=== PATIENT | male | born 1965 | race Caucasian/White ===

== ENCOUNTER 2016-07-05 18:35 | Emergency (ER) | payer OTHER ==
[2016-07-05 21:05] LABS: BASOPHIL 1.1 % (0-2); EOSINOPHIL 2.5 % (0-5); HCT 41.5 % (42.0-52.0); HGB 14.2 g/dl (13.2-18.0); MCH 29.8 pg (25.0-31.0); MCHC 34.2 g/dL (32.0-36.0); MCV 87.2 fL (78.0-100.0); MONOCYTE 11.1 % (0-12); MPV 10.1 fL (6.0-9.5); NEUTROPHIL 66.3 % (41-80); PLT 298 K/uL (150-400); RBC 4.76 M/uL (4.70-6.00); RDW 14.4 % (11.5-14.0); WBC 8.3 K/uL (4.0-10.5)
[2016-07-05 22:01] LABS: CREATININE 0.8 mg/dL (0.7-1.2); POTASSIUM 4.1 mmol/L (3.5-5.1)
== END 2016-07-05 23:13 | disposition home or self-care (01) ==
LOC: FER 18:35
PROVIDERS: Emergency Medicine Emergency Medical Services
DX: M54.12 Radiculopathy, cervical region (principal); E03.9 Hypothyroidism, unspecified; M32.9 Systemic lupus erythematosus, unspecified; I45.6 Pre-excitation syndrome; Z79.899 Other long term (current) drug therapy
CPT/HCPCS: 36415; 72125; 73030; 80048; 85025; J1100; J1170; J1885; J2405; J2800; J3360

== ENCOUNTER 2016-07-12 20:04 | Emergency (ER) | payer OTHER | END 2016-07-12 21:27 | disposition home or self-care (01) | LOC: FER 20:04 | DX: M54.12 Radiculopathy, cervical region (principal); M54.5 Low back pain; I10 Essential (primary) hypertension; E03.9 Hypothyroidism, unspecified; M32.9 Systemic lupus erythematosus, unspecified; Z87.39 Personal history of other diseases of the musculoskeletal system and connective tissue; Z98.890 Other specified postprocedural states | CPT/HCPCS: J1885 ==

== ENCOUNTER 2016-12-20 14:40 | Emergency (ER) | payer OTHER | END 2016-12-20 21:24 | disposition home or self-care (01) | LOC: FER 14:40 | DX: S83.91XA Sprain of unspecified site of right knee, initial encounter (principal); X50.1XXA Overexertion from prolonged static or awkward postures, initial encounter; Y92.009 Unspecified place in unspecified non-institutional (private) residence as the place of occurrence of the external cause | CPT/HCPCS: 73700; J1170; J1885 ==

== ENCOUNTER → 2016-12-25 | Day surgery (SDC) | payer OTHER ==
[2016-12-24 16:31] LABS: ALBUMIN 4.2 g/dL (3.5-5.0); BILIRUBIN - TOTAL 0.8 mg/dL (0.1-1.0); CREATININE 0.8 mg/dL (0.7-1.2); GLOBULIN (CALCULATION) 3.9 g/dL (2.2-4.2); POTASSIUM 3.8 mmol/L (3.5-5.1); TOTAL PROTEIN 8.1 g/dL (6.4-8.3)
[~2016-12-25] VITALS: Ht 190.5 cm; Wt 136.1 kg
[2016-12-25 06:20] LABS: HCT 45.7 % (42.0-52.0); HGB 15.4 g/dl (13.2-18.0); MCH 28.8 pg (25.0-31.0); MCHC 33.7 g/dL (32.0-36.0); MCV 85.4 fL (78.0-100.0); MPV 9.7 fL (6.0-9.5); RBC 5.35 M/uL (4.70-6.00); RDW 14.8 % (11.5-14.0); WBC 13.1 K/uL (4.0-10.5)
== END | disposition home or self-care (01) ==
LOC: FAS 06:14
PROVIDERS: Orthopaedic Surgery
DX: M23.221 Derangement of posterior horn of medial meniscus due to old tear or injury, right knee (principal); M23.231 Derangement of other medial meniscus due to old tear or injury, right knee; M17.11 Unilateral primary osteoarthritis, right knee; M67.51 Plica syndrome, right knee; M25.861 Other specified joint disorders, right knee; M79.4 Hypertrophy of (infrapatellar) fat pad; I10 Essential (primary) hypertension; E03.9 Hypothyroidism, unspecified; K22.70 Barrett's esophagus without dysplasia; K21.9 Gastro-esophageal reflux disease without esophagitis; M35.2 Behcet's disease; Z98.1 Arthrodesis status; Z79.899 Other long term (current) drug therapy; Z98.890 Other specified postprocedural states
CPT/HCPCS: 36415; 71020; 80053; 93005; J1100; J1170; J1885; J2405; J2704; J3010

== ENCOUNTER 2020-09-30 12:14 | Emergency (ER) | payer OTHER ==
[~2020-09-30 12:14] MED LIST: ASPIRIN CHEWABL81 MG PO; BENTYL10 MG PO; CELEBREX **OUT100 MG PO; COZAAR50 MG PO; DICLOFENAC SOD100 G1 TOP; HYDROCODON-ACE1 EAC2 PO; NITROQUIK SL0.4 MG SL; PANTOPRAZOLE SO40 MG PO; PERCOCET 5-3251 EACH PO; PROTONIX 40MG T40 MG PO; SUDOGEST120 MG PO; SYNTHROID100 MCG PO; TESTOSTERO200 MG/1 M IM; TOPROL XL 50 MG50 MG PO; VITAMIN D350000 UNIT PO; ZOCOR40 MG PO; ZOLOFT100 MG PO
[2020-09-30 14:18] LABS: BASOPHIL 0.7 % (0-2); EOSINOPHIL 0.5 % (0-5); HGB 16.9 g/dl (13.2-18.0); LYMPHOCYTE 15.6 % (15-48); MCH 31.4 pg (25.0-31.0); MCHC 34.5 g/dL (32.0-36.0); MCV 90.9 fL (78.0-100.0); MONOCYTE 11.5 % (0-12); NEUTROPHIL 71.3 % (41-80); NRBC 0; PLT 253 K/uL (150-400); RBC 5.39 M/uL (4.70-6.00); RDW 14.2 % (11.5-14.0); WBC 10.5 K/uL (4.0-10.5)
[2020-09-30 14:40] LABS: INR 1.11 (0.9-1.2); PROTHROMBIN TIME 13.6 SECONDS (11.4-13.6)
[2020-09-30 15:01] LABS: ALBUMIN 3.9 g/dL (3.4-5.0); BILIRUBIN - TOTAL 0.9 mg/dL (0.2-1.0); BUN/CREAT RATIO (CALC) 23.3 RATIO; CREATININE 0.9 mg/dL (0.67-1.17); POTASSIUM 4.2 mmol/L (3.5-5.1); TOTAL PROTEIN 7.9 g/dL (6.4-8.2)
[2020-10-05] MEDS ORDERED: NORCO 5-325 TA1 EACH PO (12:29)
== END 2020-09-30 16:55 | disposition home or self-care (01) ==
LOC: FER 12:14
PROVIDERS: Emergency Medicine
DX: K64.4 Residual hemorrhoidal skin tags (principal); R19.7 Diarrhea, unspecified; I10 Essential (primary) hypertension
CPT/HCPCS: 36415; 80053; 85025; 85610; 99283; J7030

== ENCOUNTER → 2020-10-05 | Day surgery (SDC) | payer OTHER ==
[~2020-10-05] VITALS: Ht 190.5 cm; Wt 133.8 kg
[~2020-10-05] MED LIST changes: +NORCO 5-325 TA1 EACH PO
== END | disposition home or self-care (01) ==
LOC: FAS 10:12
DX: K64.5 Perianal venous thrombosis (principal); K64.8 Other hemorrhoids; F41.9 Anxiety disorder, unspecified; M35.2 Behcet's disease; K50.90 Crohn's disease, unspecified, without complications; F32.9 Major depressive disorder, single episode, unspecified; K76.0 Fatty (change of) liver, not elsewhere classified; K21.9 Gastro-esophageal reflux disease without esophagitis; G43.909 Migraine, unspecified, not intractable, without status migrainosus; E78.5 Hyperlipidemia, unspecified; I11.9 Hypertensive heart disease without heart failure; E03.9 Hypothyroidism, unspecified; G47.00 Insomnia, unspecified; G47.33 Obstructive sleep apnea (adult) (pediatric); G62.9 Polyneuropathy, unspecified; Z88.8 Allergy status to other drugs, medicaments and biological substances; Z90.49 Acquired absence of other specified parts of digestive tract; I45.10 Unspecified right bundle-branch block
CPT/HCPCS: 93005; J1170; J2250; J2405; J2704; J3010; J7120

== ENCOUNTER 2021-01-22 17:10 | Inpatient (IN) | payer OTHER ==
[~2021-01-22] VITALS: Ht 190.5 cm; Wt 127.5 kg
[2021-01-22 20:48] LABS: EOSINOPHIL 1.2 % (0-5); HCT 37.9 % (42.0-52.0); HGB 12.4 g/dl (13.2-18.0); LYMPHOCYTE 21.6 % (15-48); MCH 28.1 pg (25.0-31.0); MCHC 32.7 g/dL (32.0-36.0); MONOCYTE 8.3 % (0-12); MPV 9.5 fL (6.0-9.5); NEUTROPHIL 67.5 % (41-80); NRBC 0; PLT 323 K/uL (150-400); RBC 4.41 M/uL (4.70-6.00); RDW 13.2 % (11.5-14.0); WBC 8.3 K/uL (4.0-10.5)
[2021-01-22 20:52] LABS: MCV 85.9 fL (78.0-100.0)
[2021-01-22 20:54] LABS: BILIRUBIN NEGATIVE (NEGATIVE); BLOOD NEGATIVE Ery/uL (NEGATIVE); CLARITY CLEAR (CLEAR); COLOR YELLOW (YELLOW); GLUCOSE (U) NORMAL (NORMAL); LEUKOCYTES NEGATIVE Leu/uL (NEGATIVE); NITRITE NEGATIVE (NEGATIVE); PROTEIN 1+ mg/dL (NEGATIVE); UROBILINOGEN 0.2 mg/dL (0.2-1.0); pH 6.5 (5.0-9.0)
[2021-01-22 21:08] LABS: ALBUMIN 3.6 g/dL (3.4-5.0); ALKALINE PHOSHATASE 75 U/L (46-116); ALT 12 U/L (16-63); AST 17 U/L (15-37); BILIRUBIN - TOTAL 0.3 mg/dL (0.2-1.0); BUN 11 mg/dL (7-18); BUN/CREAT RATIO (CALC) 16.7 RATIO; C-REACTIVE PROTEIN < 0.20 mg/dL (<=0.90); CHLORIDE 104 mmol/L (98-107); CO2 (BICARBONATE) 25 mmol/L (21-32); CREATININE 0.66 mg/dL (0.67-1.17); GLOBULIN (CALCULATION) 4.4 g/dL; GLUCOSE 106 mg/dL (74-106); LIPASE 105 U/L (73-393); MAGNESIUM 1.7 mg/dL (1.8-2.4); POTASSIUM 3.2 mmol/L (3.5-5.1)
[2021-01-22 21:13] LABS: BACTERIA TRACE; MUCOUS TRACE; URINARY RBC RARE
[2021-01-22 21:13] LABS: LACTIC ACID 0.9 mmol/L (0.4-1.9)
[2021-01-23] MEDS ORDERED: DRISDOL50000 UNIT PO (01:58)
[2021-01-23] MEDS ORDERED: VOLTAREN **OUT50 MG PO (01:58)
[2021-01-23] MEDS ORDERED: SYNTHROID125 MCG PO (01:59)
[2021-01-23] MEDS ORDERED: COZAAR50 MG PO (02:00)
[2021-01-23] MEDS ORDERED: TOPROL XL 50 MG50 MG PO (02:00)
[2021-01-23] MEDS ORDERED: PROTONIX 40MG T40 MG PO (02:00)
[2021-01-23] MEDS ORDERED: ZOLOFT100 MG PO (02:01)
[2021-01-23] MEDS ORDERED: ZOCOR40 MG PO (02:07)
[2021-01-23] MEDS ORDERED: SUDAFED30 MG PO (02:08)
[2021-01-23] MEDS ORDERED: OXYCONTIN20 MG PO (02:09)
[2021-01-23] MEDS ORDERED: RIFADIN300 MG PO (02:10)
[2021-01-23] MEDS ORDERED: CEFAZOLIN2 GM/100 M IV (02:11)
[2021-01-23 06:23] LABS: BASOPHIL 0.9 % (0-2); EOSINOPHIL 0.9 % (0-5); HCT 37.2 % (42.0-52.0); HGB 12.1 g/dl (13.2-18.0); LYMPHOCYTE 20.8 % (15-48); MCH 28.3 pg (25.0-31.0); MCHC 32.5 g/dL (32.0-36.0); MCV 87.1 fL (78.0-100.0); MONOCYTE 7.8 % (0-12); MPV 9.8 fL (6.0-9.5); NEUTROPHIL 69.5 % (41-80); NRBC 0; PLT 289 K/uL (150-400); RBC 4.27 M/uL (4.70-6.00); RDW 13.3 % (11.5-14.0); WBC 7.7 K/uL (4.0-10.5)
[2021-01-23 06:41] LABS: BUN/CREAT RATIO (CALC) 13.8 RATIO; CREATININE 0.65 mg/dL (0.67-1.17); MAGNESIUM 2.2 mg/dL (1.8-2.4); POTASSIUM 3.6 mmol/L (3.5-5.1)
[2021-01-23] MEDS ORDERED: OXYCODONE IR 5MG5 MG PO (14:41)
[2021-01-24 06:03] LABS: BASOPHIL 0.5 % (0-2); EOSINOPHIL 0.7 % (0-5); HCT 32.9 % (42.0-52.0); HGB 10.6 g/dl (13.2-18.0); LYMPHOCYTE 10.9 % (15-48); MCH 28.3 pg (25.0-31.0); MCHC 32.2 g/dL (32.0-36.0); MONOCYTE 6.9 % (0-12); MPV 9.6 fL (6.0-9.5); NEUTROPHIL 80.7 % (41-80); NRBC 0; PLT 254 K/uL (150-400); RBC 3.74 M/uL (4.70-6.00); RDW 13.5 % (11.5-14.0); WBC 9.8 K/uL (4.0-10.5)
[2021-01-24 06:14] LABS: INR 1.67 (0.9-1.2); PROTHROMBIN TIME 18.9 SECONDS (11.8-13.4)
[2021-01-24 06:18] LABS: BUN/CREAT RATIO (CALC) 11.5 RATIO; CREATININE 0.61 mg/dL (0.67-1.17); MAGNESIUM 1.8 mg/dL (1.8-2.4); POTASSIUM 3.9 mmol/L (3.5-5.1)
[2021-01-25 06:40] LABS: BASOPHIL 0.9 % (0-2); EOSINOPHIL 4.6 % (0-5); HCT 33.9 % (42.0-52.0); HGB 10.9 g/dl (13.2-18.0); LYMPHOCYTE 23.7 % (15-48); MCH 28.5 pg (25.0-31.0); MCHC 32.2 g/dL (32.0-36.0); MCV 88.7 fL (78.0-100.0); MONOCYTE 9.3 % (0-12); NEUTROPHIL 61.2 % (41-80); NRBC 0; PLT 257 K/uL (150-400); RBC 3.82 M/uL (4.70-6.00); RDW 13.5 % (11.5-14.0); WBC 7.4 K/uL (4.0-10.5)
[2021-01-25 07:02] LABS: ALBUMIN 3.1 g/dL (3.4-5.0); BILIRUBIN - TOTAL 0.3 mg/dL (0.2-1.0); BUN/CREAT RATIO (CALC) 6.3 RATIO; CREATININE 0.79 mg/dL (0.67-1.17); GLOBULIN (CALCULATION) 3.7 g/dL; POTASSIUM 3.7 mmol/L (3.5-5.1); TOTAL PROTEIN 6.8 g/dL (6.4-8.2)
[2021-01-25] MEDS ORDERED: HYDROCODON-ACE1 EAC6 PO (13:02)
[2021-01-25] MEDS ORDERED: AUGMENTIN 875-1 EACH PO (13:02)
== END 2021-01-25 14:58 | disposition home or self-care (01) | DRG 336 ==
LOC: FER 17:10 → FMS 23:35
PROVIDERS: Emergency Medicine; Family Medicine; Internal Medicine; Student in an Organized Health Care Education/Training Program; ADMIT Allergy & Immunology
PROC: 0DNU4ZZ Release Omentum, Percutaneous Endoscopic Approach (ICD-10-PCS; 2021-01-23)
PROC: 0DTJ4ZZ Resection of Appendix, Percutaneous Endoscopic Approach (ICD-10-PCS; principal; 2021-01-23 13:00)
DX: K35.80 Unspecified acute appendicitis (principal); T81.49XA Infection following a procedure, other surgical site, initial encounter; K66.0 Peritoneal adhesions (postprocedural) (postinfection); I10 Essential (primary) hypertension; Z20.822 Contact with and (suspected) exposure to COVID-19; E03.9 Hypothyroidism, unspecified; E78.5 Hyperlipidemia, unspecified; E87.6 Hypokalemia; E83.42 Hypomagnesemia; G89.4 Chronic pain syndrome; I45.6 Pre-excitation syndrome; G47.30 Sleep apnea, unspecified; K21.9 Gastro-esophageal reflux disease without esophagitis; G43.909 Migraine, unspecified, not intractable, without status migrainosus; F32.9 Major depressive disorder, single episode, unspecified; E66.9 Obesity, unspecified; Z68.35 Body mass index [BMI] 35.0-35.9, adult; Z98.890 Other specified postprocedural states; Z88.8 Allergy status to other drugs, medicaments and biological substances; Z90.49 Acquired absence of other specified parts of digestive tract; Z83.3 Family history of diabetes mellitus; Z82.49 Family history of ischemic heart disease and other diseases of the circulatory system; Z79.899 Other long term (current) drug therapy; Z79.890 Hormone replacement therapy; Y83.8 Other surgical procedures as the cause of abnormal reaction of the patient, or of later complication, without mention of misadventure at the time of the procedure
CPT/HCPCS: 36415; 71045; 80048; 80053; 81001; 83605; 83690; 83735; 84145; 84484; 85025; 85610; 85730; 86140; 93005; 94010; C9113; J0360; J0690; J0735; J1170; J1644; J1885; J2250; J2405; J2543; J2550; J2704; J2710; J3010; J3475; J3480; J3490; J7030; J7120; Q9967; U0002